=== PATIENT | female | born 1960 | race Caucasian/White ===

== ENCOUNTER 2022-08-20 11:53 | Emergency (ER) | payer SELFPAY ==
[~2022-08-20] VITALS: Ht 157.4 cm; Wt 61.2 kg
[2022-08-20] MEDS ORDERED: LISINOPRIL-HCT1 EACH PO (12:08)
[2022-08-20 12:42] LABS: BASO # 0.1 10*3/uL (0.0-0.1); BASO % 0.5 % (0.0-1.0); EOS # 0.4 10*3/uL (0.0-0.4); EOS % 3.8 % (1.0-4.0); HEMATOCRIT 45.3 % (37.0-47.0); LYMPH # 2.4 10*3/uL (1.3-4.4); LYMPH % 25.5 % (27.0-41.0); MEAN CELL VOLUME 96.6 fl (81.0-99.0); MEAN CORPUSCULAR HGB 32.4 pg (27.0-31.0); MEAN CORPUSCULAR HGB CONC 33.6 g/dl (33.0-37.0); MEAN PLATELET VOLUME 8.3 fl (9.6-12.3); MONO # 0.8 10*3/uL (0.1-1.0); MONO % 8.8 % (3.0-9.0); NEUT # 5.8 10*3/uL (2.3-7.9); NEUT % 61.2 % (47.0-73.0); PLATELET COUNT AUTOMATED 364 10*3/uL (130-400); RED BLOOD COUNT 4.69 10*6/uL (4.10-5.10); RED CELL DISTRI WIDTH 13.3 % (0-14.5); WHITE BLOOD COUNT 9.4 10*3/uL (4.8-10.8)
[2022-08-20 12:58] LABS: ALKALINE PHOSPHATASE 128 U/L (45-117); CHLORIDE 100 mmol/L (98-107); CREATININE 0.53 mg/dL (0.55-1.02); LIPASE 97 U/L (73-393); POTASSIUM 3.8 mmol/L (3.5-5.1); SGOT/AST 16 IU/L (3-35); SGPT/ALT 26 U/L (12-78); SODIUM 134 mmol/L (136-145); TOTAL PROTEIN 8.4 gm/dL (6.4-8.2)
[2022-08-20 12:59] LABS: BUN 6 mg/dl (7-24)
[2022-08-20 13:12] LABS: ACT PARTIAL THROMBO TIME 28.1 SECONDS (20.0-32.1); INTERNATIONAL NORM RATIO 0.9 (2.0-3.5)
[2022-08-20] MEDS ORDERED: PREDNISONE50 MG PO (14:20)
== END 2022-08-20 14:39 | disposition home or self-care (01) ==
LOC: ED 11:53
PROVIDERS: Family Medicine
DX: J44.9 Chronic obstructive pulmonary disease, unspecified (principal); Z20.822 Contact with and (suspected) exposure to COVID-19; F17.200 Nicotine dependence, unspecified, uncomplicated; Z79.899 Other long term (current) drug therapy; Z71.6 Tobacco abuse counseling

== ENCOUNTER 2022-09-16 05:00 | Inpatient (IN) | payer SELFPAY ==
[~2022-09-16] VITALS: Ht 162.5 cm; Wt 57.8 kg
[~2022-09-16 05:00] MED LIST: LISINOPRIL-HCT1 EACH PO; PREDNISONE50 MG PO
[2022-09-16 05:11] VITALS: BP 170/93
[2022-09-16 06:18] VITALS: BP 163/79
[2022-09-16 06:44] LABS: BASO % 0.5 % (0.0-1.0); EOS # 0.5 10*3/uL (0.0-0.4); EOS % 5.7 % (1.0-4.0); HEMATOCRIT 41.8 % (37.0-47.0); LYMPH # 1.8 10*3/uL (1.3-4.4); LYMPH % 20.2 % (27.0-41.0); MEAN CELL VOLUME 93.9 fl (81.0-99.0); MEAN CORPUSCULAR HGB 32.6 pg (27.0-31.0); MEAN CORPUSCULAR HGB CONC 34.7 g/dl (33.0-37.0); MEAN PLATELET VOLUME 8.4 fl (9.6-12.3); MONO # 0.5 10*3/uL (0.1-1.0); MONO % 5.4 % (3.0-9.0); NEUT # 5.9 10*3/uL (2.3-7.9); NEUT % 67.9 % (47.0-73.0); PLATELET COUNT AUTOMATED 369 10*3/uL (130-400); RED BLOOD COUNT 4.45 10*6/uL (4.10-5.10); RED CELL DISTRI WIDTH 11.9 % (0-14.5); WHITE BLOOD COUNT 8.7 10*3/uL (4.8-10.8)
[2022-09-16 06:54] LABS: ACT PARTIAL THROMBO TIME 26.4 SECONDS (20.0-32.1)
[2022-09-16 07:03] LABS: ALKALINE PHOSPHATASE 102 U/L (45-117); BUN 8 mg/dl (7-24); CHLORIDE 99 mmol/L (98-107); CREATININE 0.46 mg/dL (0.55-1.02); POTASSIUM 3.8 mmol/L (3.5-5.1); SGOT/AST 12 IU/L (3-35); SGPT/ALT 24 U/L (12-78); SODIUM 133 mmol/L (136-145); TOTAL PROTEIN 7.8 gm/dL (6.4-8.2)
[2022-09-16] MEDS ORDERED: DOXYCYCLINE HY100 M3 PO ×2 (07:28)
[2022-09-16] MEDS ORDERED: PREDNISONE10 MG PO ×2 (07:28)
[2022-09-16] MEDS ORDERED: ASPIRIN ADULT L81 M1 PO (10:50)
[2022-09-16 13:46] VITALS: BP 156/87
[2022-09-16 16:20] VITALS: BP 153/83
[2022-09-16 19:15] VITALS: BP 143/73
[2022-09-16 21:00] VITALS: BP 146/75
[2022-09-17] VITALS: BP 140/77
[2022-09-17 06:36] LABS: BASO % 0.1 % (0.0-1.0); EOS # 0.1 10*3/uL (0.0-0.4); EOS % 0.6 % (1.0-4.0); HEMATOCRIT 39.4 % (37.0-47.0); LYMPH # 1.5 10*3/uL (1.3-4.4); LYMPH % 10.8 % (27.0-41.0); MEAN CELL VOLUME 94.3 fl (81.0-99.0); MEAN CORPUSCULAR HGB 32.8 pg (27.0-31.0); MEAN CORPUSCULAR HGB CONC 34.8 g/dl (33.0-37.0); MEAN PLATELET VOLUME 8.6 fl (9.6-12.3); MONO # 0.4 10*3/uL (0.1-1.0); MONO % 2.9 % (3.0-9.0); NEUT # 11.5 10*3/uL (2.3-7.9); NEUT % 85.1 % (47.0-73.0); PLATELET COUNT AUTOMATED 373 10*3/uL (130-400); RED BLOOD COUNT 4.18 10*6/uL (4.10-5.10); RED CELL DISTRI WIDTH 11.9 % (0-14.5); WHITE BLOOD COUNT 13.5 10*3/uL (4.8-10.8)
[2022-09-17 07:38] LABS: BUN 9 mg/dl (7-24)
[2022-09-17 07:39] LABS: CHLORIDE 94 mmol/L (98-107); CHOLESTEROL 204 mg/dL (<200); CREATININE 0.55 mg/dL (0.55-1.02); LDL CHOLESTEROL 96 mg/dL (9-159); SODIUM 128 mmol/L (136-145); TOTAL PROTEIN 7.4 gm/dL (6.4-8.2); TRIGLYCERIDES 71 mg/dl (<150)
[2022-09-17 07:40] LABS: ALKALINE PHOSPHATASE 92 U/L (45-117); FREE T4 1.18 ng/dl (0.76-1.46); SGOT/AST 10 IU/L (3-35); SGPT/ALT 23 U/L (12-78); THYROID STIM HORMONE (HS) 0.239 uIU/ml (0.358-4.75)
[2022-09-17 08:00] VITALS: BP 127/67
[2022-09-17 09:37] LABS: VITAMIN D, 25-HYDROXY 22.5 ng/mL (30-100)
[2022-09-17 12:00] VITALS: BP 83/45
[2022-09-17 16:00] VITALS: BP 93/61
[2022-09-17 20:00] VITALS: BP 106/54
[2022-09-18] VITALS: BP 115/57
[2022-09-18 08:00] VITALS: BP 116/66
[2022-09-18] MEDS ORDERED: SYMB160 INH (09:57)
[2022-09-18] MEDS ORDERED: PROVENTIL HFA6.7 GM INH (09:57)
[2022-09-18] MEDS ORDERED: PREDNISONE10 MG PO (09:58)
[2022-09-18] MEDS ORDERED: LISINOPRIL-HCT1 EACH PO (10:57)
[2022-09-18] MEDS ORDERED: OMNICEF300 MG PO (10:57)
[2022-09-18] MEDS ORDERED: AVPAK AZITHROM250 M1 PO (10:57)
[2022-09-18] MEDS ORDERED: NICODERM T (10:57)
[2022-09-18] MEDS ORDERED: NICODERM CQ1 EAC1 T (10:58)
== END 2022-09-18 11:46 | disposition home or self-care (01) | DRG 871 ==
LOC: ED 05:00 → EDHOLD 08:20 → 4E 19:03
PROVIDERS: Emergency Medicine; Registered Nurse; ADMIT Emergency Medicine; ATTEND Emergency Medicine
DX: A41.9 Sepsis, unspecified organism (principal); J96.01 Acute respiratory failure with hypoxia; J44.1 Chronic obstructive pulmonary disease with (acute) exacerbation; J44.0 Chronic obstructive pulmonary disease with (acute) lower respiratory infection; I10 Essential (primary) hypertension; R65.20 Severe sepsis without septic shock; R73.9 Hyperglycemia, unspecified; F17.210 Nicotine dependence, cigarettes, uncomplicated; J20.9 Acute bronchitis, unspecified; Z82.49 Family history of ischemic heart disease and other diseases of the circulatory system; Z80.0 Family history of malignant neoplasm of digestive organs

== ENCOUNTER → 2023-09-01 | Outpatient (CLI) | payer SELFPAY ==
[~2023-09-01] MED LIST changes: +ASPIRIN ADULT L81 M1 PO; +AVPAK AZITHROM250 M1 PO; +DOXYCYCLINE HY100 M3 PO; +NICODERM CQ1 EAC1 T; +NICODERM T; +OMNICEF300 MG PO; +PREDNISONE10 MG PO; +PROVENTIL HFA6.7 GM INH; +SYMB160 INH
== END | disposition home or self-care (01) ==
LOC: RESCLI 12:59
PROVIDERS: ATTEND Internal Medicine
DX: J44.9 Chronic obstructive pulmonary disease, unspecified (principal); I10 Essential (primary) hypertension; E55.9 Vitamin D deficiency, unspecified; Z79.899 Other long term (current) drug therapy; Z79.82 Long term (current) use of aspirin